=== PATIENT | male | born 1985 | race Caucasian/White ===

== ENCOUNTER 2016-10-27 20:26 | Emergency (ER) | payer OTHER ==
[2016-10-27 20:40] VITALS: BP 150/84; PULSE 103; TEMP 98.3; BMI 35.9
[2016-10-27] MEDS ORDERED: DIPHTH,PERTUSS(ACELL),TET 0.5 ML DISP.SYRIN IM ONE (21:53)
--- NOTE | 2016-10-27 21:57 | PDOC ---
History of Present Illness - General Chief Complaint: Laceration Stated Complaint: LACERATION Time Seen by Provider: 10/27/16 21:53 History Source: Patient Exam Limitations: No Limitations - History of Present Illness Initial Comments: 10/27/16 21:53 31 yr male with laceration to the left eyebrow at work today. Pt accidentaly hit with a shovel handle. no loc. Past History - Past Medical History Allergies/Adverse Reactions: Allergies Allergy/AdvReac Type Severity Reaction Status Date / Time No Known Drug Allergies Allergy Verified 10/27/16 20:37 codfish Allergy Unknown Itching Uncoded 10/27/16 20:37 shrimp Allergy Unknown Itching Uncoded 10/27/16 20:37 Home Medications: Ambulatory Orders Metformin HCl [Glucophage] 1,000 mg PO ASDIR 10/27/16 Oxycodone HCl/Acetaminophen [Oxycodone-Acetaminophen 10-325] 10 mg PO ASDIR 10/06 Ramipril 2.5 mg PO ASDIR 10/27/16 Sitagliptin Phos/Metformin HCl [Janumet Xr 50-500 mg Tablet] 50 mg PO ASDIR 10/06 Asthma: Yes Diabetes: Yes (NIDDM) HTN: Yes - Immunization History Td Vaccination: No (unknown) - Psycho/Social/Smoking Cessation Hx Anxiety: No Suicidal Ideation: No Smoking Status: Yes Smoking History: Current every day smoker Have you smoked in the past 12 months: Yes Number of Cigarettes Smoked Daily: 20 If you are a former smoker, when did you quit?: 2WEEKS AGO Information on smoking cessation initiated: No 'Breaking Loose' booklet given: 05/03/15 Hx Alcohol Use: No Drug/Substance Use Hx: No Substance Use Type: None Hx Substance Use Treatment: No *Physical Exam - Vital Signs Last Vital Signs Temp Pulse Resp BP Pulse Ox 98.3 F 103 H 18 150/84 99 10/27/16 20:37 10/27/16 20:37 10/27/16 20:37 10/27/16 20:37 10/27/16 20:37 - Physical Exam Comments: 10/27/16 21:55 General Appearance: Yes: Nourished, Appropriately Dressed HEENT: positive: EOMI, TAMI, Normal ENT Inspection, TMs Normal, Pharynx Normal Neck: positive: Supple. negative: Tender Respiratory/Chest: positive: Lungs Clear, Normal Breath Sounds Cardiovascular: positive: Regular Rhythm, Regular Rate Integumentary: positive: Normal Color, Dry, Warm, Other (1.5cm v shaped laceration threw the left eyebrow, no active bleeding ) Procedures - Laceration/Wound Repair Left Face Wound Length: to 2.5 cm Wound Explored: clean Wound's Depth, Shape: superficial, flap (v shaped ) Irrigated w/ Saline: Yes Betadine Prep: Yes Wound Repaired With: Dermabond (pt refused any suturing ) Medical Decision Making - Medical Decision Making 10/27/16 21:56 cc: eyebrow laceration pt refused suturing (does not want any needles) I have discussed that I can place dermabond to glue closed which pt prefers will update tetanus pt agrees to the tetanus vaccine dc inst wound care and cosmetic outcome discussed with pt who agrees with the glue closure. 10/27/16 22:36 *DC/Admit/Observation/Transfer Diagnosis at time of Disposition: Laceration - Discharge Dispostion Disposition: HOME Condition at time of disposition: Improved - Patient Instructions Printed Discharge Instructions: DI for Laceration Repair With Dermabond Additional Instructions: do not get wet for at least 12hrs then you can briefly get wet in the shower do not put any creams or lotions over the wound the glue will peel off on its own in about one week tetanus vaccine is good for 10 yrs
== END 2016-10-27 21:57 | disposition home or self-care (01) ==
LOC: JERFT 20:26
PROC: 0HQ1XZZ Repair Face Skin, External Approach (ICD-10-PCS; principal; 2016-10-27)
PROC: 3E0234Z Introduction of Serum, Toxoid and Vaccine into Muscle, Percutaneous Approach (ICD-10-PCS; 2016-10-27)
DX: S01.112A Laceration without foreign body of left eyelid and periocular area, initial encounter (principal); W22.8XXA Striking against or struck by other objects, initial encounter; Y93.9 Activity, unspecified; Y92.9 Unspecified place or not applicable; Y99.0 Civilian activity done for income or pay; I10 Essential (primary) hypertension; E11.9 Type 2 diabetes mellitus without complications; J45.909 Unspecified asthma, uncomplicated; F17.210 Nicotine dependence, cigarettes, uncomplicated; Z79.84 Long term (current) use of oral hypoglycemic drugs; Z91.013 Allergy to seafood
CPT/HCPCS: 12011-25; 90471; 90715; 99281-25

== ENCOUNTER 2016-11-13 03:27 | Emergency (ER) | payer OTHER ==
[2016-11-13 04:20] VITALS: BP 104/50; PULSE 87; TEMP 98; BMI 36.1
[2016-11-13] MEDS ORDERED: IBUPROFEN 400 MG TABLET (FP) PO ONE ×2 (05:00→05:05)
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
== END 2016-11-13 06:49 | disposition home or self-care (01) ==
LOC: JER 03:27
PROC: 2W3CX1Z Immobilization of Right Lower Arm using Splint (ICD-10-PCS; principal; 2016-11-13)
DX: S62.396A Other fracture of fifth metacarpal bone, right hand, initial encounter for closed fracture (principal); Y04.0XXA Assault by unarmed brawl or fight, initial encounter; Y92.89 Other specified places as the place of occurrence of the external cause; I10 Essential (primary) hypertension; E11.9 Type 2 diabetes mellitus without complications; Z79.4 Long term (current) use of insulin; F17.210 Nicotine dependence, cigarettes, uncomplicated
CPT/HCPCS: 72100-TC; 73030-TC-RT; 73130-TC-RT; 99282-25

== ENCOUNTER 2017-02-01 15:52 | Emergency (ER) | payer OTHER ==
[2017-02-01 16:01] VITALS: BP 153/81; PULSE 86; TEMP 97.9; BMI 29.5
[2017-02-01] MEDS ORDERED: KETOROLAC TROMETHAMINE 30 MG/1 ML VIAL IM ONE (17:37)
[2017-02-01] MEDS ORDERED: KETOROLAC TROMETHAMINE 30 MG/1 ML VIAL ONE (17:55)
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
== END 2017-02-01 19:12 | disposition home or self-care (01) ==
LOC: JERFT 15:52
PROC: 3E0233Z Introduction of Anti-inflammatory into Muscle, Percutaneous Approach (ICD-10-PCS; principal; 2017-02-01)
DX: S29.8XXA Other specified injuries of thorax, initial encounter (principal); V09.09XA Pedestrian injured in nontraffic accident involving other motor vehicles, initial encounter; Y92.488 Other paved roadways as the place of occurrence of the external cause; Y93.H9 Activity, other involving exterior property and land maintenance, building and construction; Y99.0 Civilian activity done for income or pay
CPT/HCPCS: 71111-TC; 73130-TC-LT; 99281-25

== ENCOUNTER 2017-02-23 20:46 | Emergency (ER) | payer OTHER ==
[2017-02-23 20:53] VITALS: BP 123/69; PULSE 81; TEMP 98; BMI 34.4
--- NOTE | 2017-02-23 20:53 | PDOC ---
Rapid Medical Evaluation Time Seen by Provider: 02/23/17 20:50 Medical Evaluation: Allergies Allergy/AdvReac Type Severity Reaction Status Date / Time No Known Drug Allergies Allergy Verified 02/01/17 15:57 codfish Allergy Unknown Itching Uncoded 02/01/17 15:57 shrimp Allergy Unknown Itching Uncoded 02/01/17 15:57 02/23/17 20:51 I have performed a brief in person evaluation of this patient. The patient presents with chief complaint of : asthma attack today taking albuterol . cough for 3 weeks HX DM, asthma, HTN Pertinent PE findings: no wheezing , vitals stable I have ordered the following: none The patient will proceed to the ER for further evaluation. Discharge Disposition - Referrals Referrals: Aniceto Avery [Primary Care Provider] - - Patient Instructions - Post Discharge Activity
[2017-02-23] MEDS ORDERED: predniSONE 20 MG TABLET (UD) PO ONE (22:27)
--- NOTE | 2017-02-23 22:27 | PDOC ---
History of Present Illness - General History Source: Patient Exam Limitations: No Limitations - History of Present Illness Initial Comments: 02/23/17 22:29 The patient is a 32 year old male with a significant PMH of asthma and diabetes who presents to the emergency department with pleuritic chest pain exacerbated by palpation and deep breathing for the past two and a half weeks. The patient states he has been feeling increasingly short of breath and tightness in his chest. The patient notes associated yellow, brown, and red colored phlegm, cough , and subjective fever secondary to his shortness of breath. The patient states he has been taking NyQuil and DayQuil with no relief of symptoms. The patient reports he has been using his asthma pump five times a day. The patient denies headache and dizziness. Denies chills, nausea, vomit, diarrhea and constipation. Allergies: NKA Past surgical history: None reported. Social history: No reported alcohol, drug, or cigarette use. PCP:Dr. Avery <Aide Roper - Last Filed: 02/23/17 22:29> <Jenna Ontiveros - Last Filed: 02/24/17 00:07> - General Chief Complaint: Asthma Stated Complaint: SOB/ASTHMA Time Seen by Provider: 02/23/17 20:50 Past History <Aide Roper - Last Filed: 02/23/17 22:29> - Past Medical History Asthma: Yes COPD: No Diabetes: Yes (NIDDM) HTN: Yes - Immunization History Td Vaccination: No (unknown) - Suicide/Smoking/Psychosocial Hx Smoking Status: Yes Smoking History: Current every day smoker Have you smoked in the past 12 months: Yes Number of Cigarettes Smoked Daily: 5 If you are a former smoker, when did you quit?: 2WEEKS AGO Information on smoking cessation initiated: No 'Breaking Loose' booklet given: 05/03/15 Hx Alcohol Use: No Drug/Substance Use Hx: No Substance Use Type: None Hx Substance Use Treatment: No <Jenna Ontiveros - Last Filed: 02/24/17 00:07> - Past Medical History Allergies/Adverse Reactions: Allergies Allergy/AdvReac Type Severity Reaction Status Date / Time No Known Drug Allergies Allergy Verified 02/23/17 20:51 codfish Allergy Unknown Itching Uncoded 02/23/17 20:51 shrimp Allergy Unknown Itching Uncoded 02/23/17 20:51 Home Medications: Ambulatory Orders Metformin HCl [Glucophage] 1,000 mg PO ASDIR 10/27/16 Ramipril 2.5 mg PO ASDIR 10/27/16 Sitagliptin Phosphate [Januvia -] 25 mg PO ONCE 02/23/17 Albuterol 0.083% Nebulizer Liat [Ventolin 0.083% Nebulizer Soln -] 1 neb NEB Q4H #20 vial 02/24/17 Albuterol Sulfate Inhaler - [Ventolin HFA Inhaler -] 1 - 2 inh PO Q4H #1 inhaler 02/24/17 Guaifenesin [Mucinex -] 600 mg PO BID #14 tablet.er 02/24/17 Prednisone [Deltasone -] 40 mg PO DAILY #8 tablet 02/24/17 Review of Systems - Review of Systems Able to Perform ROS?: Yes Comments:: 02/23/17 22:38 GENERAL/CONSTITUTIONAL: (+) Fever. No chills. No weakness. HEAD, EYES, EARS, NOSE AND THROAT: No change in vision. No ear pain or discharge. No sore throat. CARDIOVASCULAR: (+) Shortness of breath. (+) Chest pain. RESPIRATORY: (+) Cough (+) Wheezing. (+) Phlegm. No hemoptysis. GASTROINTESTINAL: No nausea, vomiting, diarrhea or constipation. GENITOURINARY: No dysuria, frequency, or change in urination. MUSCULOSKELETAL: No joint or muscle swelling or pain. No neck or back pain. SKIN: No rash NEUROLOGIC: No headache, vertigo, loss of consciousness, or change in strength/ sensation. ENDOCRINE: No increased thirst. No abnormal weight change. HEMATOLOGIC/LYMPHATIC: No anemia, easy bleeding, or history of blood clots. ALLERGIC/IMMUNOLOGIC: No hives or skin allergy. <Aide Roper - Last Filed: 02/23/17 22:29> *Physical Exam - Vital Signs Last Vital Signs Temp Pulse Resp BP Pulse Ox 98 F 81 18 123/69 97 02/23/17 20:51 02/23/17 20:51 02/23/17 20:51 02/23/17 20:51 02/23/17 20:51 - Physical Exam Comments: 02/23/17 22:42 GENERAL: Awake, alert, and fully oriented, in no acute distress HEAD: No signs of trauma EYES: PERRLA, EOMI, sclera anicteric, conjunctiva clear ENT: Auricles normal inspection, hearing grossly normal, nares patent, oropharynx clear without exudates. Moist mucosa NECK: Normal ROM, supple, no lymphadenopathy, JVD, or masses LUNGS: (+) Scattered expiratory wheezing. (+) Decreased breath sounds in the bases. No crackles. HEART: Regular rate and rhythm, normal S1 and S2, no murmurs, rubs or gallops ABDOMEN: Soft, nontender, normoactive bowel sounds. No guarding, no rebound. No masses EXTREMITIES: Normal range of motion, no edema. No clubbing or cyanosis. No cords, erythema, or tenderness NEUROLOGICAL: Cranial nerves II through XII grossly intact. Normal speech, normal gait SKIN: Warm, Dry, normal turgor, no rashes or lesions noted. <Aide Roper - Last Filed: 02/23/17 22:29> - Vital Signs Last Vital Signs Temp Pulse Resp BP Pulse Ox 98 F 81 18 123/69 97 02/23/17 20:51 02/23/17 20:51 02/23/17 20:51 02/23/17 20:51 02/23/17 20:51 <Jenna Ontiveros - Last Filed: 02/24/17 00:07> Medical Decision Making - Medical Decision Making 02/24/17 00:02 repeat lung exam with improved aeration to bases, no wheezing. CXR negative for pneumonia. D/c home <Jenna Ontiveros - Last Filed: 02/24/17 00:07> *DC/Admit/Observation/Transfer - Attestations Scribe Attestion: 02/23/17 22:43 Documentation prepared by Aide Roper, acting as medical care evaluation specialist for Jeffry Zimmerman MD. <Aide Roper - Last Filed: 02/23/17 22:29> - Discharge Dispostion Admit: No <Jenna Ontiveros - Last Filed: 02/24/17 00:07> Diagnosis at time of Disposition: Asthma Qualifiers: Asthma severity: mild Asthma persistence: intermittent Asthma complication type : with acute exacerbation Qualified Code(s): J45.21 - Mild intermittent asthma with (acute) exacerbation - Discharge Dispostion Disposition: HOME Condition at time of disposition: Improved - Referrals Referrals: Aniceto Avery [Primary Care Provider] - - Patient Instructions Printed Discharge Instructions: DI for Asthma -- Adult Additional Instructions: You had an asthma exacerbation today most likely due to an upper respiratory infection, common cold. Please take your nebulizer solution went home every 4 hours as needed for the wheezing and cough. If you're out he may use your albuterol pump in its place. Please take the prednisone and Mucinex as prescribed. Please follow-up with Dr. Avery this week. Return to the emergency department if you have worsening shortness of breath, chest pain, difficulty breathing, fevers, or any changes in her symptoms. - Post Discharge Activity Forms/Work/School Notes: Back to Work
[2017-02-23] MEDS: ALBUTEROL SO4 2.5/IPRATROPIUM 0.5 INH SOL 3 ML VIAL.NEB. NEB SCH ×4 (22:31→23:47)
[2017-02-23] MEDS ORDERED: ALBUTEROL SO4 2.5/IPRATROPIUM 0.5 INH SOL 3 ML VIAL.NEB. NEB ONE (22:50)
[2017-02-23] MEDS ORDERED: predniSONE 20 MG TABLET (UD) ONE (22:50)
== END 2017-02-24 00:10 | disposition home or self-care (01) ==
LOC: JERFT 20:46
PROC: 3E0F7GC Introduction of Other Therapeutic Substance into Respiratory Tract, Via Natural or Artificial Opening (ICD-10-PCS; principal; 2017-02-23)
DX: J45.21 Mild intermittent asthma with (acute) exacerbation (principal); F17.210 Nicotine dependence, cigarettes, uncomplicated
CPT/HCPCS: 71020-TC; 94640; 99281-25

== ENCOUNTER 2018-04-15 09:59 | Inpatient (IN) | payer OTHER ==
--- NOTE | 2018-04-15 11:26 | PDOC ---
History of Present Illness - General Chief Complaint: Ear Problem Stated Complaint: EAR PAIN Time Seen by Provider: 04/15/18 10:59 History Source: Patient Exam Limitations: No Limitations - History of Present Illness Initial Comments: 04/15/18 15:33 Pt is a 33 y/o M with PMH of NIDDM, who presents to the ED for L ear pain for two days. Pt states that he has had intermittent L ear pain for one month. He states that he noticed minimal drainage from the L ear. Pt also admits to body aches, and chills. Denies fever, hearing loss. Past History - Travel Traveled outside of the country in the last 30 days: No Close contact w/someone who was outside of country & ill: No - Past Medical History Allergies/Adverse Reactions: Allergies Allergy/AdvReac Type Severity Reaction Status Date / Time No Known Drug Allergies Allergy Verified 04/15/18 10:05 codfish Allergy Unknown Itching Uncoded 04/15/18 10:05 shrimp Allergy Unknown Itching Uncoded 04/15/18 10:05 Home Medications: Ambulatory Orders Albuterol 0.083% Nebulizer Liat [Ventolin 0.083% Nebulizer Soln -] 1 neb NEB Q4H #20 vial 02/24/17 Albuterol Sulfate Inhaler - [Ventolin HFA Inhaler -] 1 - 2 inh PO Q4H #1 inhaler 02/24/17 Asthma: Yes COPD: No Diabetes: Yes (NIDDM) HTN: Yes - Immunization History Td Vaccination: No (unknown) - Suicide/Smoking/Psychosocial Hx Smoking Status: Yes Smoking History: Unknown if ever smoked Have you smoked in the past 12 months: Yes Number of Cigarettes Smoked Daily: 5 If you are a former smoker, when did you quit?: 2WEEKS AGO 'Breaking Loose' booklet given: 05/03/15 Hx Alcohol Use: No Drug/Substance Use Hx: No Substance Use Type: None Hx Substance Use Treatment: No Review of Systems - Review of Systems Able to Perform ROS?: Yes Comments:: 04/15/18 15:28 CONSTITUTIONAL: Absent: fever, chills, diaphoresis, generalized weakness, malaise, loss of appetite HEENT: Present: ear pain Absent: rhinorrhea, nasal congestion, throat pain, throat swelling, difficulty swallowing, mouth swelling, eye pain, visual Changes CARDIOVASCULAR: Absent: chest pain, loss of consciousness, palpitations, irregular heart rate, peripheral edema RESPIRATORY: Absent: cough, shortness of breath, dyspnea with exertion, orthopnea, wheezing, stridor, hemoptysis GASTROINTESTINAL: Absent: abdominal pain, abdominal distension, nausea, vomiting, diarrhea, constipation, melena, hematochezia GENITOURINARY: Absent: dysuria, frequency, urgency, hesitancy, hematuria, flank pain, genital pain MUSCULOSKELETAL: Absent: myalgia, arthralgia, joint swelling SKIN: Absent: rash, itching, pallor HEMATOLOGIC/IMMUNOLOGIC: Absent: easy bleeding, easy bruising, lymphadenopathy, frequent infections ENDOCRINE: Absent: unexplained weight gain, unexplained weight loss, heat intolerance, cold intolerance NEUROLOGIC: Present: headaches Absent: focal weakness or paresthesias, dizziness, unsteady gait, seizure, mental status changes, bladder or bowel incontinence PSYCHIATRIC: Absent: anxiety, depression, suicidal or homicidal ideation, hallucinations. Is the patient limited Romansh proficient: No *Physical Exam - Vital Signs Last Vital Signs Temp Pulse Resp BP Pulse Ox 98.3 F 82 16 133/87 99 04/15/18 10:06 04/15/18 10:06 04/15/18 10:06 04/15/18 10:06 04/15/18 10:06 - Physical Exam Comments: 04/15/18 15:30 GENERAL: Well developed, well nourished. Awake and alert. No acute distress. HEENT: Normocephalic, atraumatic. PERRLA, EOMI. No conjunctival pallor. Sclera are non- icteric. Moist mucous membranes. Oropharynx is clear. L ear canal is erythematous and swollen. Minimal drainage. R TM is normal. TTP behind the L ear around the area of the mastoid air cells. NECK: Supple. Full ROM. No JVD. Carotid pulses 2+ and symmetric, without bruits. No thyromegaly. No lymphadenopathy. CARDIOVASCULAR: Regular rate and rhythm. No murmurs, rubs, or gallops. Distal pulses are 2+ and symmetric. PULMONARY: No evidence of respiratory distress. Lungs clear to auscultation bilaterally. No wheezing, rales or rhonchi. ABDOMINAL: Soft. Non-tender. Non-distended. No rebound or guarding. No organomegaly. Normoactive bowel sounds. MUSCULOSKELETAL Normal range of motion at all joints. No bony deformities or tenderness. No CVA tenderness. EXTREMITIES: No cyanosis. No clubbing. No edema. No calf tenderness. SKIN: Warm and dry. Normal capillary refill. No rashes. No jaundice. NEUROLOGICAL: Alert, awake, appropriate. Cranial nerves 2-12 intact. No deficits to light touch and temperature in face, upper extremities and lower extremities. No motor deficits in the in face, upper extremities and lower extremities. Normoreflexic in the upper and lower extremities. Normal speech. Toes are down- going bilaterally. Gait is normal without ataxia. PSYCHIATRIC: Cooperative. Good eye contact. Appropriate mood and affect. Moderate Sedation - Procedure Monitoring Vital Signs: Procedure Monitoring Vital Signs Temperature 98.3 F 04/15/18 10:06 Pulse Rate 82 04/15/18 10:06 Respiratory Rate 16 04/15/18 10:06 Blood Pressure 133/87 04/15/18 10:06 O2 Sat by Pulse Oximetry (%) 99 04/15/18 10:06 ED Treatment Course - LABORATORY CBC & Chemistry Diagram: 04/15/18 11:32 04/15/18 11:32 Medical Decision Making - Medical Decision Making 04/15/17 15:21 Pt presents with 2 days of severe L ear pain Exam with erythema to the L ear canal without gross otorrhea TTP to the mastoid area Motrin ordered CT Temporal bones ordered. Re-evaluation 04/15/18 17:00 Acute Mastoiditis seen on Temporal CT Tramadol given for pain Pt is high risk given his diabetes and will require admission to the hospital Vancomycin and rocephin ordered 6 units of insulin ordered for sugar of [address] Aniceto Avery; Dr. Hunter's service paged. 04/15/18 17:[address] Sterling who agrees with admission Changed Rocephin to Zosyn Blood cultures ordered. *DC/Admit/Observation/Transfer Diagnosis at time of Disposition: Mastoiditis Qualifiers: Laterality: left Qualified Code(s): H70.92 - Unspecified mastoiditis, left ear - Discharge Dispostion Condition at time of disposition: Stable Decision to Admit order: Yes - Referrals - Patient Instructions - Post Discharge Activity
[2018-04-15 11:55] LABS: BASO % 0.7 % (0-2.0); HEMATOCRIT 49.3 % (35.4-49); HEMOGLOBIN 17.3 GM/dL (11.7-16.9); LYMPH % 25.9 % (8-40); MCH 31.7 pg (25.7-33.7); MCHC 35.1 g/dl (32.0-35.9); MEAN CELL VOLUME 90.3 fl (80-96); MEAN PLT VOLUME 8.1 fl (7.5-11.1); MONO % 8.7 % (3.8-10.2); NEUT % 62.7 % (42.8-82.8); PLATELET COUNT 285 K/MM3 (134-434); RBC 5.46 M/mm3 (4.00-5.60); RDW 13.1 % (11.9-15.9); WHITE BLOOD COUNT 12.1 K/mm3 (4.0-10.0)
[2018-04-15] MEDS ORDERED: IBUPROFEN 400 MG TABLET (FP) PO ONE ×2 (12:42→12:45)
[2018-04-15 12:51] LABS: ALBUMIN 4.1 g/dl (3.4-5.0); ALK PHOS 78 U/L (45-117); ANION GAP 8 MMOL/L (8-16); BILIRUBIN,TOTAL 0.4 mg/dL (0.2-1); BLOOD UREA NITROGEN 14 mg/dL (7-18); CALCIUM 9.3 mg/dL (8.5-10.1); CHLORIDE 99 mmol/L (98-107); CO2 28 mmol/L (21-32); CREATININE 0.9 mg/dL (0.55-1.3); POTASSIUM 3.9 mmol/L (3.5-5.1); SGOT/AST 13 U/L (15-37); SGPT/ALT 39 U/L (13-61); SODIUM 135 mmol/L (136-145); TOT PROT 7.9 g/dl (6.4-8.2)
[2018-04-15 12:59] LABS: GLUCOSE,RANDOM 320 mg/dL (74-106)
[2018-04-15] MEDS ORDERED: traMADol HCL 50 MG TABLET PO ONE (15:53)
[2018-04-15] MEDS ORDERED: traMADol HCL 50 MG TABLET ONE (15:57)
[2018-04-15] MEDS ORDERED: INSULIN (NOVOLOG) ASPART 100 UNITS/ML 10ML VIAL SQ ONE ×2 (16:58→23:19)
[2018-04-15] MEDS ORDERED: VANCOMYCIN 1,000 MG in DEXTROSE 5%-WATER - 250 ML IVPB ONE (16:58)
[2018-04-15] MEDS ORDERED: CEFTRIAXONE 1,000 MG in DEXTROSE 5%-WATER - 50 ML IVPB ONE (16:59)
[2018-04-15] MEDS ORDERED: PIPERACILLIN/TAZOB 3.375 GM 3.375 GM in DEXTROSE 5%-WATER - 50 ML IVPB ONE (17:31)
[2018-04-15] MEDS ORDERED: PIPERACILLIN/TAZOB 3.375 GM 3.375 GM/50 ML BAG IVPB ONE (18:34)
[2018-04-15] MEDS ORDERED: VANCOMYCIN 1 GRAM (PRE-DOCKED) 1,000 MG/250 ML BAG IVPB ONE (18:34)
[2018-04-15] MEDS ORDERED: INSULIN REGULAR HUMAN 100 UNITS/ML *VIAL ONE (18:35)
--- NOTE | 2018-04-15 20:28 | HP ---
Admitting History and Physical - Primary Care Physician PCP: Aniceto Avery - Admission Chief Complaint: L- Ear Pain, Swelling History of Present Illness: Pt is a 33 y/o M with PMH of NIDDM(no meds), HTN (no meds), Asthma. Who presents to the ED for L ear pain for two days. Pt states that he has had intermittent L ear pain for one month. He states that he noticed minimal drainage from the L ear. Pt also admits to body aches, and chills. Denies fever , hearing loss. Patient denies SOB, dysphagia, CP, palpitations, AP, N/V/D, constipation, dysuria History Source: Patient Limitations to Obtaining History: No Limitations - Past Medical History Cardiovascular: Yes: HTN Pulmonary: Yes: Asthma Endocrine: Yes: Diabetes Mellitus - Past Surgical History Past Surgical History: Yes: None - Smoking History Smoking history: Unknown if ever smoked Have you smoked in the past 12 months: Yes Aproximately how many cigarettes per day: 5 If you are a former smoker, when did you quit?: 2WEEKS AGO - Alcohol/Substance Use Hx Alcohol Use: No History of Substance Use: reports: None - Social History Usual Living Arrangement: Yes: With Parent ADL: Independent Occupation: employed- [employer] History of Recent Travel: No Home Medications - Allergies Allergies/Adverse Reactions: Allergies Allergy/AdvReac Type Severity Reaction Status Date / Time No Known Drug Allergies Allergy Verified 04/15/18 10:05 codfish Allergy Unknown Itching Uncoded 04/15/18 10:05 shrimp Allergy Unknown Itching Uncoded 04/15/18 10:05 - Home Medications Home Medications: Ambulatory Orders Albuterol 0.083% Nebulizer Liat [Ventolin 0.083% Nebulizer Soln -] 1 neb NEB Q4H #20 vial 02/24/17 Albuterol Sulfate Inhaler - [Ventolin HFA Inhaler -] 1 - 2 inh PO Q4H #1 inhaler 02/24/17 Family Disease History - Family Disease History Family Disease History: Diabetes: Grandparent Review of Systems - Review of Systems Constitutional: reports: No Symptoms Eyes: reports: No Symptoms HENT: reports: Ear Discharge, Ear Pain Neck: reports: Swollen Glands Cardiovascular: reports: No Symptoms Respiratory: reports: No Symptoms Gastrointestinal: reports: No Symptoms Genitourinary: reports: No Symptoms Breasts: reports: No Symptoms Reported Musculoskeletal: reports: No Symptoms Integumentary: reports: No Symptoms Neurological: reports: No Symptoms Endocrine: reports: No Symptoms Hematology/Lymphatic: reports: No Symptoms Psychiatric: reports: No Symptoms Physical Examination Vital Signs: Vital Signs Temperature 98.3 F 04/15/18 10:06 Pulse Rate 82 04/15/18 10:06 Respiratory Rate 16 04/15/18 10:06 Blood Pressure 133/87 04/15/18 10:06 O2 Sat by Pulse Oximetry (%) 99 04/15/18 10:06 Constitutional: Yes: Well Nourished, Mild Distress, Obese Eyes: Yes: WNL, Conjunctiva Clear, EOM Intact, PERRL HENT: Yes: Atraumatic, Normocephalic, Other (+edema to L-ear TTP L-ear) Neck: Yes: WNL Cardiovascular: Yes: WNL, Regular Rate and Rhythm, S1, S2 Respiratory: Yes: WNL, Regular, CTA Bilaterally Gastrointestinal: Yes: WNL, Normal Bowel Sounds, Soft, Abdomen, Obese Renal/: Yes: WNL Breast(s): Yes: WNL Musculoskeletal: Yes: WNL Extremities: Yes: WNL Edema: No Peripheral Pulses WNL: Yes Integumentary: Yes: Tattoos Neurological: Yes: WNL, Alert, Oriented, Cran Nerves II-XII Intact ...Motor Strength: WNL Psychiatric: Yes: WNL, Alert, Oriented Labs: CBC, BMP 04/15/18 11:32 04/15/18 11:32 Current Medications Generic Name Dose Route Start Last Admin Trade Name Arielq PRN Reason Stop Dose Admin Piperacillin Sod/Tazobactam 50 mls @ 100 mls/hr 04/16/18 03:00 Sod 3.375 gm/ Dextrose IVPB Q8H-IV NITIN Protocol Piperacillin Sod/Tazobactam 50 mls @ 100 mls/hr 04/16/18 02:00 04/16/18 02:50 Sod 3.375 gm/ Dextrose IVPB 04/16/18 18:29 100 mls/hr Q8H-IV NITIN Administration Protocol Insulin Aspart 1 vial 04/16/18 07:00 04/16/18 06:33 Novolog Vial Sliding Scale - SQ 4 units ACHS NITIN Administration Protocol Ketorolac Tromethamine 30 mg 04/15/18 21:00 04/16/18 02:50 Toradol Injection - IVPUSH 04/20/18 20:59 Not Given Q8H-IV NITIN Tramadol HCl 50 mg 04/16/18 00:01 Ultram - PO Q8H PRN PAIN LEVEL 7 - 10 Imaging - Results Cat Scan: Image Reviewed Problem List - Problems (1) Mastoiditis Assessment/Plan: Temporal CT- Mastoiditis Given Vancomycin, Rocephin in ED Will start on Zosyn for Pseudomonal coverage Appreciate ENT consult Toradol prn Tramadol Monitor CBC, BMP Monitor vitals Code(s): H70.90 - UNSPECIFIED MASTOIDITIS, UNSPECIFIED EAR Qualifiers: Laterality: left Qualified Code(s): H70.92 - Unspecified mastoiditis, left ear (2) Diabetes Assessment/Plan: Uncontrolled Likely secondary to non-compliance Counseled pt on risks and dangers of uncontrolled DM, patient verbalized understanding BGMs ISS Appreciate RD consult f/u with Endocrinology outpatient HgbA1c in 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 Code(s): E11.9 - TYPE 2 DIABETES MELLITUS WITHOUT COMPLICATIONS Qualifiers: Diabetes mellitus type: type 2 Diabetes mellitus complication status: without complication Qualified Code(s): E11.9 - Type 2 diabetes mellitus without complications (3) HTN (hypertension) Assessment/Plan: Stable Monitor BP Low Na Diet Code(s): I10 - ESSENTIAL (PRIMARY) HYPERTENSION (4) Asthma Assessment/Plan: stable no acute flare Albuterol nebs Consider adding LABA to regimen Peak flow BID f/u with Pulmonology in ED Code(s): J45.909 - UNSPECIFIED ASTHMA, UNCOMPLICATED Qualifiers: Asthma severity: mild Asthma persistence: intermittent Asthma complication type: with acute exacerbation Qualified Code(s): J45.21 - Mild intermittent asthma with (acute) exacerbation Assessment/Plan This is a 33 y/o young man with a PMHx of NIDDM, HTN, Asthma. Admitted for Mastoiditis, Uncontrolled DM for further evaluation of their emergent condition. Plan See Problem List FEN PO fluids as tolerated Replete lytes prn Diabetic, Low Na Diet DVT ppx OOB SCDs Dispo: Requires Inpatient Care Visit type - Emergency Visit Emergency Visit: Yes ED Registration Date: 04/15/18 Care time: The patient presented to the Emergency Department on the above date and was hospitalized for further evaluation of their emergent condition. - New Patient This patient is new to me today: Yes Date on this admission: 04/15/18 - Critical Care Critical Care patient: No
[2018-04-15 21:32] VITALS: BMI 35.4
[2018-04-15] MEDS ORDERED: INSULIN REGULAR HUMAN 100 UNITS/ML *VIAL SQ ONE (23:19)
[2018-04-15] MEDS: KETOROLAC TROMETHAMINE 30 MG/1 ML VIAL IVPUSH SCH (23:28)
[2018-04-16] MEDS ORDERED: traMADol HCL 50 MG TABLET PO PRN (00:01)
[2018-04-16] MEDS ORDERED: PIPERACILLIN/TAZOBACTAM 3.375 GM VIAL IVPB ONE ×3 (00:08→16:56)
[2018-04-16] MEDS ORDERED: DEXTROSE 5%-WATER - 50 ML IVPB ONE ×3 (00:08→16:56)
[2018-04-16] MEDS: PIPERACILLIN/TAZOB 3.375 GM 3.375 GM in DEXTROSE 5%-WATER - 50 ML IVPB SCH ×4 (02:50→18:28)
[2018-04-16] MEDS: KETOROLAC TROMETHAMINE 30 MG/1 ML VIAL IVPUSH SCH ×3 (02:50→17:03)
[2018-04-16] MEDS: INSULIN SLIDING SCALE (NOVOLOG) 1 VIAL SQ SCH ×4 (06:33→21:31)
[2018-04-16 07:26] LABS: BASO % 0.6 % (0-2.0); EOS % 2.5 % (0-4.5); HEMATOCRIT 44.1 % (35.4-49); HEMOGLOBIN 15.6 GM/dL (11.7-16.9); LYMPH % 28.5 % (8-40); MCH 31.3 pg (25.7-33.7); MCHC 35.3 g/dl (32.0-35.9); MEAN CELL VOLUME 88.5 fl (80-96); MEAN PLT VOLUME 8.2 fl (7.5-11.1); MONO % 8.7 % (3.8-10.2); NEUT % 59.7 % (42.8-82.8); PLATELET COUNT 250 K/MM3 (134-434); RBC 4.98 M/mm3 (4.00-5.60); WHITE BLOOD COUNT 10.2 K/mm3 (4.0-10.0)
[2018-04-16 07:57] LABS: ANION GAP 7 MMOL/L (8-16); BLOOD UREA NITROGEN 20 mg/dL (7-18); CALCIUM 8.6 mg/dL (8.5-10.1); CHLORIDE 103 mmol/L (98-107); CO2 27 mmol/L (21-32); CREATININE 0.9 mg/dL (0.55-1.3); GLUCOSE,RANDOM 244 mg/dL (74-106); POTASSIUM 4.1 mmol/L (3.5-5.1); SODIUM 138 mmol/L (136-145)
--- NOTE | 2018-04-16 12:58 | CON.ENT ---
Consult Consult Specialty:: ent Reason for Consultation:: 2 days of left ear pain - History of Present Illness Chief Complaint: 2 days of left ear pain, hearing reduction. Elevated FSG. - History Source History Provided By: Patient, Medical Record Limitations to Obtaining History: No Limitations - Past Medical History Cardio/Vascular: Yes: HTN Pulmonary: Yes: Asthma Endocrine: Yes: Diabetes Mellitus - Past Surgical History Past Surgical History: Yes: None - Alcohol/Substance Use Hx Alcohol Use: No History of Substance Use: reports: None - Smoking History Smoking history: Unknown if ever smoked Have you smoked in the past 12 months: Yes Aproximately how many cigarettes per day: 5 If you are a former smoker, when did you quit?: 2WEEKS AGO - Social History ADL: Independent Occupation: employed- [employer] History of Recent Travel: No Home Medications - Allergies Allergies/Adverse Reactions: Allergies Allergy/AdvReac Type Severity Reaction Status Date / Time No Known Drug Allergies Allergy Verified 04/15/18 10:05 codfish Allergy Unknown Itching Uncoded 04/15/18 10:05 shrimp Allergy Unknown Itching Uncoded 04/15/18 10:05 - Home Medications Home Medications: Ambulatory Orders Albuterol 0.083% Nebulizer Liat [Ventolin 0.083% Nebulizer Soln -] 1 neb NEB Q4H #20 vial 02/24/17 Albuterol Sulfate Inhaler - [Ventolin HFA Inhaler -] 1 - 2 inh PO Q4H #1 inhaler 02/24/17 Family Disease History - Family Disease History Family Disease History: Diabetes: Grandparent Physical Exam-ENT Vital Signs: Vital Signs Temperature 97.9 F 04/16/18 08:00 Pulse Rate 55 L 04/16/18 08:00 Respiratory Rate 20 04/16/18 08:00 Blood Pressure 132/68 04/16/18 08:00 O2 Sat by Pulse Oximetry (%) 99 04/16/18 09:00 Constitutional: Yes: Well Nourished, No Distress Head: Yes: WNL, Atraumatic Face: Yes: WNL, Symmetrical Eyes: Yes: WNL, Conjunctiva Clear Nose: Yes: WNL Nasal Passage: Yes: WNL Oral/Pharynx: Yes: WNL Outer Ear: Yes: Other (minimal left postauricular tenderness, with deep pressure. no swelling or erythema) Ear Canal: Yes: Inflamed (left inflamed, right wnl) Tympanic Membrane: Yes: Other (right normal, left middle ear fluid, erythema) Neck: Yes: WNL Imaging - Results Cat Scan: Report Reviewed, Image Reviewed (some mastoid air cell opacification, no abscess or collection, middle ear swelling) Problem List - Problems (1) Left middle ear infection Assessment/Plan: Clinically not mastoiditis. Clinically Acute otitis media, and mild otitis externa. Continue IV abx 1-2 days and switch to po. Also neomycin ear drops and f/u with me in 1-2 weeks. Code(s): H66.92 - OTITIS MEDIA, UNSPECIFIED, LEFT EAR Qualifiers: Otitis media type: suppurative Chronicity: acute Spontaneous tympanic membrane rupture: without spontaneous rupture
--- NOTE | 2018-04-16 18:01 | PN ---
Progress Note, Physician Chief Complaint: L ear pain Diabetes Mellitus History of Present Illness: previous notes and events reviewed awake and alert NAD sts pain to L ear is getting better - Current Medication List Current Medications: Active Medications Piperacillin Sod/Tazobactam (Sod 3.375 gm/ Dextrose) 50 mls @ 100 mls/hr IVPB Q8H-IV NITIN; Protocol Piperacillin Sod/Tazobactam (Sod 3.375 gm/ Dextrose) 50 mls @ 100 mls/hr IVPB Q8H-IV NITIN; Protocol Stop: 04/16/18 18:29 Last Admin: 04/16/18 17:03 Dose: 100 mls/hr Insulin Aspart (Novolog Vial Sliding Scale -) 1 vial SQ ACHS NITIN; Protocol Last Admin: 04/16/18 16:37 Dose: 8 units Ketorolac Tromethamine (Toradol Injection -) 30 mg IVPUSH Q8H-IV NITIN Stop: 04/20/18 20:59 Last Admin: 04/16/18 17:03 Dose: 30 mg Neomycin/Polymyxin/Hydrocortisone (Cortisporin Otic Suspenstion -) 4 drop TID NITIN Tramadol HCl (Ultram -) 50 mg PO Q8H PRN PRN Reason: PAIN LEVEL 7 - 10 - Objective Vital Signs: Vital Signs Temperature 98.1 F 04/16/18 15:32 Pulse Rate 60 04/16/18 15:32 Respiratory Rate 18 04/16/18 15:32 Blood Pressure 148/70 04/16/18 15:32 O2 Sat by Pulse Oximetry (%) 99 04/16/18 09:00 Constitutional: Yes: No Distress, Calm HENT: Yes: Other (L ear tender on palpation) Neck: Yes: Supple Cardiovascular: Yes: Regular Rate and Rhythm Respiratory: Yes: Regular, CTA Bilaterally Gastrointestinal: Yes: Normal Bowel Sounds, Soft Musculoskeletal: Yes: WNL Extremities: Yes: WNL Edema: No Integumentary: Yes: WNL Neurological: Yes: Alert, Oriented Psychiatric: Yes: Alert, Oriented Labs: CBC, BMP 04/16/18 06:25 04/16/18 06:25 Problem List - Problems (1) Left middle ear infection Assessment/Plan: -ENT consult appreciated -cont IV ABT -neomyacin ear drops -follow up with ENT as outpatient -contact precaution, MRSA screen pending Code(s): H66.92 - OTITIS MEDIA, UNSPECIFIED, LEFT EAR Qualifiers: Otitis media type: suppurative Chronicity: acute Spontaneous tympanic membrane rupture: without spontaneous rupture (2) Diabetes Assessment/Plan: -BGM ACHS, ISS -HgA1c ordered Code(s): E11.9 - TYPE 2 DIABETES MELLITUS WITHOUT COMPLICATIONS Qualifiers: Diabetes mellitus type: type 2 Diabetes mellitus complication status: without complication Qualified Code(s): E11.9 - Type 2 diabetes mellitus without complications (3) HTN (hypertension) Assessment/Plan: -no home meds -low Na diet Code(s): I10 - ESSENTIAL (PRIMARY) HYPERTENSION Assessment/Plan dvt ppx
[2018-04-16] MEDS ORDERED: INSULIN (NOVOLOG) ASPART 100 UNITS/ML 10ML VIAL ONE (20:58)
[2018-04-16] MEDS ORDERED: PT OWN MED DRAWER 7, Y5N ONE (21:06)
[2018-04-16] MEDS: NEOMYCIN/POLYMYXN/HC OTIC SUSPENSION 10 ML BOTTLE AS SCH (21:31)
[2018-04-17] MEDS ORDERED: PIPERACILLIN/TAZOBACTAM 3.375 GM VIAL IVPB ONE ×3 (02:45→17:14)
[2018-04-17] MEDS ORDERED: DEXTROSE 5%-WATER - 50 ML IVPB ONE ×3 (02:45→17:14)
[2018-04-17] MEDS: PIPERACILLIN/TAZOB 3.375 GM 3.375 GM in DEXTROSE 5%-WATER - 50 ML IVPB SCH ×3 (02:48→17:38)
[2018-04-17] MEDS: KETOROLAC TROMETHAMINE 30 MG/1 ML VIAL IVPUSH SCH ×3 (02:49→17:39)
[2018-04-17] MEDS: INSULIN SLIDING SCALE (NOVOLOG) 1 VIAL SQ SCH ×4 (06:16→22:06)
[2018-04-17] MEDS: NEOMYCIN/POLYMYXN/HC OTIC SUSPENSION 10 ML BOTTLE AS SCH ×3 (06:17→21:59)
[2018-04-17] MEDS ORDERED: PT OWN MED DRAWER 7, Y5N ONE (07:08)
[2018-04-17 07:16] LABS: HEMATOCRIT 42.5 % (35.4-49); HEMOGLOBIN 15.1 GM/dL (11.7-16.9); MCH 31.4 pg (25.7-33.7); MCHC 35.5 g/dl (32.0-35.9); MEAN CELL VOLUME 88.6 fl (80-96); MEAN PLT VOLUME 8.1 fl (7.5-11.1); PLATELET COUNT 238 K/MM3 (134-434); RDW 12.8 % (11.9-15.9); WHITE BLOOD COUNT 9.3 K/mm3 (4.0-10.0)
[2018-04-17 08:10] LABS: ALBUMIN 3.1 g/dl (3.4-5.0); ALK PHOS 65 U/L (45-117); ANION GAP 8 MMOL/L (8-16); BILIRUBIN,TOTAL 0.5 mg/dL (0.2-1); BLOOD UREA NITROGEN 24 mg/dL (7-18); CALCIUM 8.1 mg/dL (8.5-10.1); CHLORIDE 102 mmol/L (98-107); CO2 26 mmol/L (21-32); CREATININE 0.9 mg/dL (0.55-1.3); GLUCOSE,RANDOM 294 mg/dL (74-106); POTASSIUM 4.1 mmol/L (3.5-5.1); SGOT/AST 7 U/L (15-37); SGPT/ALT 29 U/L (13-61); SODIUM 135 mmol/L (136-145); TOT PROT 6.2 g/dl (6.4-8.2)
[2018-04-17] MEDS ORDERED: ALBUTEROL SO4 8 GM HFA INHALER IH PRN (09:00)
--- NOTE | 2018-04-17 09:26 | PN ---
Progress Note, Physician Chief Complaint: L ear pain Diabetes Mellitus History of Present Illness: previous notes and events reviewed awake and alert NAD L ear pain improving as per pt - Current Medication List Current Medications: Active Medications Albuterol Sulfate (Ventolin Hfa Inhaler -) 2 puff IH Q4H PRN PRN Reason: SHORT OF BREATH/WHEEZING Piperacillin Sod/Tazobactam (Sod 3.375 gm/ Dextrose) 50 mls @ 100 mls/hr IVPB Q8H-IV NITIN; Protocol Last Admin: 04/17/18 02:48 Dose: 100 mls/hr Insulin Aspart (Novolog Vial Sliding Scale -) 1 vial SQ ACHS NITIN; Protocol Last Admin: 04/17/18 06:16 Dose: 6 units Ketorolac Tromethamine (Toradol Injection -) 30 mg IVPUSH Q8H-IV NITIN Stop: 04/20/18 20:59 Last Admin: 04/17/18 02:49 Dose: 30 mg Neomycin/Polymyxin/Hydrocortisone (Cortisporin Otic Suspenstion -) 4 drop TID NITIN Last Admin: 04/17/18 06:17 Dose: 4 drop Tramadol HCl (Ultram -) 50 mg PO Q8H PRN PRN Reason: PAIN LEVEL 7 - 10 - Objective Vital Signs: Vital Signs Temperature 97.5 F L 04/17/18 06:03 Pulse Rate 53 L 04/17/18 06:03 Respiratory Rate 18 04/17/18 06:03 Blood Pressure 129/72 04/17/18 06:03 O2 Sat by Pulse Oximetry (%) 99 04/16/18 21:00 Constitutional: Yes: No Distress, Calm Eyes: Yes: Conjunctiva Clear HENT: Yes: Other (L ear tender to palpation) Cardiovascular: Yes: Regular Rate and Rhythm Respiratory: Yes: Regular, CTA Bilaterally Gastrointestinal: Yes: Normal Bowel Sounds, Soft Musculoskeletal: Yes: WNL Extremities: Yes: WNL Edema: No Neurological: Yes: Alert, Oriented Psychiatric: Yes: Alert, Oriented Labs: CBC, BMP 04/17/18 06:00 04/17/18 06:00 Microbiology 04/15/18 18:45 Blood Culture - Preliminary Blood - Peripheral Venous NO GROWTH OBTAINED AFTER 24 HOURS, INCUBATION TO CONTINUE FOR 4 DAYS. 04/15/18 18:45 Blood Culture - Preliminary Blood - Peripheral Venous NO GROWTH OBTAINED AFTER 24 HOURS, INCUBATION TO CONTINUE FOR 4 DAYS. Problem List - Problems (1) Left middle ear infection Assessment/Plan: -ENT consult appreciated -cont IV ABT -neomyacin ear drops -follow up with ENT as outpatient -contact precaution, MRSA screen pending Code(s): H66.92 - OTITIS MEDIA, UNSPECIFIED, LEFT EAR Qualifiers: Otitis media type: suppurative Chronicity: acute Spontaneous tympanic membrane rupture: without spontaneous rupture (2) Diabetes Assessment/Plan: -BGM ACHS, ISS -HgA1c 9.4 -endocrinology consult placed Code(s): E11.9 - TYPE 2 DIABETES MELLITUS WITHOUT COMPLICATIONS Qualifiers: Diabetes mellitus type: type 2 Diabetes mellitus complication status: without complication Qualified Code(s): E11.9 - Type 2 diabetes mellitus without complications (3) HTN (hypertension) Assessment/Plan: -no home meds -low Na diet -monitor BP Code(s): I10 - ESSENTIAL (PRIMARY) HYPERTENSION Assessment/Plan dvt ppx
--- NOTE | 2018-04-17 16:06 | PN ---
Progress Note (short form) - Note Progress Note: ID CONSULT DICTATED OK TO SWITCH TO CIPRO 500MG PO BID X 7D CONTINUE OTIC DROPS OUTPATIENT ENT F/U
--- NOTE | 2018-04-17 18:48 | CONS ---
DATE OF CONSULTATION: DATE OF DICTATION: 04/17/2018 HISTORY OF PRESENT ILLNESS: The patient is a 33-year-old male diabetic who is being evaluated for left otitis media. He presented with a 2-day history of worsening left ear pain associated some discharge. He presented to the hospital where he was admitted for otitis media. A CAT scan was performed and was consistent with left otomastoiditis. He was seen in consultation by ENT. At the present time, he reports clinical improvement on IV antibiotics and otic drops. He denies any fever or chills. He has had less pain and better hearing in his left ear. PAST MEDICAL HISTORY: Positive for diabetes. LABORATORY DATA: White count 9.3, creatinine 0.9. Blood cultures are negative. PHYSICAL EXAMINATION: General: The patient is not acutely toxic appearing. Vital Signs: Temperature 98.0, pulse 58 and regular, blood pressure 130/73, respiratory rate 18 per minute. HEENT:: Sclerae anicteric. There is no appreciable erythema noted. In the left pinna or external ear canal, no drainage is noted. Neck: Supple. No palpable nodes. IMPRESSION: Left otitis media; mastoiditis felt unlikely by ENT. PLAN: Okay to switch to oral antibiotic therapy with ciprofloxacin 500 mg p.o. b.i.d. for an additional 7 days. Continue otic drops. Outpatient ENT followup. PASQUALE VARGAS M.D. [id number]
[2018-04-18] MEDS ORDERED: INSULIN (NOVOLOG) ASPART 100 UNITS/ML 10ML VIAL SQ ONE (00:17)
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
[2018-04-18] MEDS ORDERED: DEXTROSE 5%-WATER - 50 ML IVPB ONE ×2 (02:53→09:14)
[2018-04-18] MEDS ORDERED: PIPERACILLIN/TAZOBACTAM 3.375 GM VIAL IVPB ONE ×2 (02:53→09:13)
[2018-04-18] MEDS: KETOROLAC TROMETHAMINE 30 MG/1 ML VIAL IVPUSH SCH ×3 (02:59→17:13)
[2018-04-18] MEDS: PIPERACILLIN/TAZOB 3.375 GM 3.375 GM in DEXTROSE 5%-WATER - 50 ML IVPB SCH (02:59)
[2018-04-18] MEDS: NEOMYCIN/POLYMYXN/HC OTIC SUSPENSION 10 ML BOTTLE AS SCH ×2 (06:17→14:51)
[2018-04-18] MEDS: INSULIN SLIDING SCALE (NOVOLOG) 1 VIAL SQ SCH ×3 (06:18→16:41)
[2018-04-18 07:53] LABS: ALK PHOS 61 U/L (45-117); ANION GAP 6 MMOL/L (8-16); BILIRUBIN,TOTAL 0.4 mg/dL (0.2-1); BLOOD UREA NITROGEN 20 mg/dL (7-18); CHLORIDE 102 mmol/L (98-107); CO2 29 mmol/L (21-32); CREATININE 0.8 mg/dL (0.55-1.3); GLUCOSE,RANDOM 208 mg/dL (74-106); POTASSIUM 3.9 mmol/L (3.5-5.1); SGOT/AST 8 U/L (15-37); SGPT/ALT 29 U/L (13-61); SODIUM 137 mmol/L (136-145); TOT PROT 6.2 g/dl (6.4-8.2)
[2018-04-18 08:18] LABS: HEMATOCRIT 41.9 % (35.4-49); HEMOGLOBIN 14.8 GM/dL (11.7-16.9); MCH 31.5 pg (25.7-33.7); MCHC 35.4 g/dl (32.0-35.9); MEAN CELL VOLUME 89.1 fl (80-96); MEAN PLT VOLUME 8.2 fl (7.5-11.1); PLATELET COUNT 245 K/MM3 (134-434); RBC 4.71 M/mm3 (4.00-5.60); RDW 12.7 % (11.9-15.9)
--- NOTE | 2018-04-18 09:32 | DS ---
Physical Examination Vital Signs: Vital Signs Temperature 97.8 F 04/18/18 06:15 Pulse Rate 62 04/18/18 06:15 Respiratory Rate 18 04/18/18 06:15 Blood Pressure 128/93 04/18/18 06:15 O2 Sat by Pulse Oximetry (%) 98 04/17/18 21:00 Findings/Remarks: Patient is a 33 yr old male with past medical history of NIDDM, HTN, Asthma. Patient presented to ER with complaints of L ear pain for 2 days. Evaluated by ENT and started on IV ABT, tolerated well. Seen by ID and ABT switched to ciprofloxacin 500mg PO BID. Patient states feeling better and pain has subsided. HgA1c 9.4%, endocrinology consulted. Will start on levemir daily. Constitutional: Yes: Well Nourished, No Distress, Calm Eyes: Yes: Conjunctiva Clear Neck: Yes: Supple Cardiovascular: Yes: Regular Rate and Rhythm Respiratory: Yes: Regular, CTA Bilaterally Gastrointestinal: Yes: Normal Bowel Sounds, Soft Musculoskeletal: Yes: WNL Extremities: Yes: WNL Edema: No Neurological: Yes: Alert, Oriented Psychiatric: Yes: Alert, Oriented Labs: CBC, BMP 04/18/18 06:00 04/18/18 06:00 Discharge Summary Reason For Visit: DIABETES MELLITUS, MASTOIDITIS Current Active Problems HTN (hypertension) (Acute) Left middle ear infection (Acute) Mastoiditis (Acute) Hospital Course: Active Medications Generic Name Dose Route Start Last Admin Trade Name Freq PRN Reason Stop Dose Admin Albuterol Sulfate 2 puff 04/17/18 09:00 Ventolin Hfa Inhaler - IH Q4H PRN SHORT OF BREATH/WHEEZING Insulin Aspart 1 vial 04/16/18 07:00 04/18/18 06:18 Novolog Vial Sliding Scale - SQ 4 units ACHS NITIN Administration Protocol Insulin Detemir 20 units 04/18/18 10:00 Levemir Vial SQ BID NITIN Ketorolac Tromethamine 30 mg 04/15/18 21:00 04/18/18 02:59 Toradol Injection - IVPUSH 04/20/18 20:59 30 mg Q8H-IV NITIN Administration Levofloxacin 500 mg 04/19/18 06:00 Levaquin - PO DAILY@0600 NITIN Neomycin/Polymyxin/Hydrocortisone 4 drop 04/16/18 22:00 04/18/18 06:17 Cortisporin Otic Suspenstion - 4 drop TID NITIN Administration Tramadol HCl 50 mg 04/16/18 00:01 Ultram - PO Q8H PRN PAIN LEVEL 7 - 10 Laboratory Last Values WBC 9.0 K/mm3 (4.0-10.0) 04/18/18 06:00 RBC 4.71 M/mm3 (4.00-5.60) 04/18/18 06:00 Hgb 14.8 GM/dL (11.7-16.9) 04/18/18 06:00 Hct 41.9 % (35.4-49) 04/18/18 06:00 MCV 89.1 fl (80-96) 04/18/18 06:00 MCH 31.5 pg (25.7-33.7) 04/18/18 06:00 MCHC 35.4 g/dl (32.0-35.9) 04/18/18 06:00 RDW 12.7 % (11.9-15.9) 04/18/18 06:00 Plt Count 245 K/MM3 (134-434) 04/18/18 06:00 MPV 8.2 fl (7.5-11.1) 04/18/18 06:00 Absolute Neuts (auto) 6.1 K/mm3 (1.5-8.0) 04/16/18 06:25 Neutrophils % 59.7 % (42.8-82.8) 04/16/18 06:25 Lymphocytes % 28.5 % (8-40) 04/16/18 06:25 Monocytes % 8.7 % (3.8-10.2) 04/16/18 06:25 Eosinophils % 2.5 % (0-4.5) 04/16/18 06:25 Basophils % 0.6 % (0-2.0) 04/16/18 06:25 Nucleated RBC % 0 % (0-0) 04/16/18 06:25 Sodium 137 mmol/L (136-145) 04/18/18 06:00 Potassium 3.9 mmol/L (3.5-5.1) 04/18/18 06:00 Chloride 102 mmol/L (98-107) 04/18/18 06:00 Carbon Dioxide 29 mmol/L (21-32) 04/18/18 06:00 Anion Gap 6 MMOL/L (8-16) L 04/18/18 06:00 BUN 20 mg/dL (7-18) H 04/18/18 06:00 Creatinine 0.8 mg/dL (0.55-1.3) 04/18/18 06:00 Creat Clearance w eGFR > 60 (>60) 04/18/18 06:00 POC Glucometer 240 UNITS (80-120) 04/18/18 05:46 Random Glucose 208 mg/dL (74-106) H 04/18/18 06:00 Hemoglobin A1c % 9.4 % (4.2-6.3) H 04/17/18 06:00 Calcium 8.0 mg/dL (8.5-10.1) L 04/18/18 06:00 Total Bilirubin 0.4 mg/dL (0.2-1) 04/18/18 06:00 AST 8 U/L (15-37) L 04/18/18 06:00 ALT 29 U/L (13-61) 04/18/18 06:00 Alkaline Phosphatase 61 U/L (45-117) 04/18/18 06:00 Total Protein 6.2 g/dl (6.4-8.2) L 04/18/18 06:00 Albumin 3.0 g/dl (3.4-5.0) L 04/18/18 06:00 Condition: Improved - Instructions Diet, Activity, Other Instructions: Follow up with PMD in 1 week follow up with ENT in [address] Nobles for DM management cont with medication regimen as prescribed diabetic diet Referrals: Aniceto Avery [Primary Care Provider] - Tito Erickson MD [Staff Physician] - Ace Snider MD [Staff Physician] - Disposition: HOME - Home Medications Comprehensive Discharge Medication List: Ambulatory Orders Albuterol 0.083% Nebulizer Liat [Ventolin 0.083% Nebulizer Soln -] 1 neb NEB Q4H #20 vial 02/24/17 Albuterol Sulfate Inhaler - [Ventolin HFA Inhaler -] 1 - 2 inh PO Q4H #1 inhaler 02/24/17 Albuterol Sulfate Inhaler - [Ventolin HFA Inhaler -] 2 puff IH Q4H PRN #1 inhaler 04/18/18 Ciprofloxacin [Cipro -] 500 mg PO BID 7 Days #14 tablet 04/18/18 Insulin (Levemir) [Levemir Vial] 20 units SQ BID #100 units 04/18/18 Insulin Sliding Scale [Novolog Vial Sliding Scale -] 1 vial SQ ACHS #100 units 04/18/18 Neomycin/Polymyxn/Hc [Cortisporin *Otic Suspenstion* -] 4 drop TID #1 bottle 04/18/18
[2018-04-18] MEDS ORDERED: CIPROFLOXACIN 500 MG TABLET (RESTRICTED TO ID) PO ONE (09:40)
[2018-04-18] MEDS ORDERED: INSULIN (LEVEMIR) 100 UNITS/ML UNITS SQ SCH (10:00)
[2018-04-18 17:40] VITALS: BP 125/72; PULSE 57; TEMP 97.9
== END 2018-04-18 18:17 | disposition home or self-care (01) | DRG 113 ==
LOC: JER 09:59 → JERFT 09:59 → JERBED 17:32 → J7W 19:35
PROVIDERS: ADMIT Internal Medicine; ATTEND Family Medicine
DX: H66.92 Otitis media, unspecified, left ear (principal); E11.65 Type 2 diabetes mellitus with hyperglycemia; I10 Essential (primary) hypertension; H70.002 Acute mastoiditis without complications, left ear; J45.909 Unspecified asthma, uncomplicated; E66.9 Obesity, unspecified; Z68.35 Body mass index [BMI] 35.0-35.9, adult
CPT/HCPCS: 36415; 70481-TC; 80048; 80053; 82962; 83036; 85025; 85027; 87040; 87081; 99282-25

== ENCOUNTER 2019-04-25 09:37 | Emergency (ER) | payer OTHER ==
[2019-04-25 09:46] VITALS: BP 122/79; PULSE 89; TEMP 98.1; BMI 31.5
--- NOTE | 2019-04-25 11:42 | PDOC ---
History of Present Illness - General Chief Complaint: Abscess Boil Stated Complaint: Abscess Boil Time Seen by Provider: 04/25/19 10:53 History Source: Patient Exam Limitations: No Limitations Past History - Travel Traveled outside of the country in the last 30 days: No Close contact w/someone who was outside of country & ill: No - Past Medical History Allergies/Adverse Reactions: Allergies Allergy/AdvReac Type Severity Reaction Status Date / Time No Known Drug Allergies Allergy Verified 04/25/19 09:43 codfish Allergy Unknown Itching Uncoded 04/25/19 09:43 shrimp Allergy Unknown Itching Uncoded 04/25/19 09:43 Home Medications: Ambulatory Orders Albuterol 0.083% Nebulizer Liat [Ventolin 0.083% Nebulizer Soln -] 1 neb NEB Q4H #20 vial 02/24/17 Albuterol Sulfate Inhaler - [Ventolin HFA Inhaler -] 1 - 2 inh PO Q4H #1 inhaler 02/24/17 Albuterol Sulfate Inhaler - [Ventolin HFA Inhaler -] 2 puff IH Q4H PRN #1 inhaler 04/18/18 Alcohol Antiseptic Pads [Alcohol Swabs] 1 each TP BID 30 Days med..pad 04/18/18 Ciprofloxacin [Cipro -] 500 mg PO BID 7 Days #14 tablet 04/18/18 Insulin (Levemir) [Levemir Vial] 20 units SQ BID #100 units 04/18/18 Insulin Sliding Scale [Novolog Vial Sliding Scale -] 1 vial SQ ACHS #100 units 04/18/18 Lancets/Blood Glucose Strips [Fora [id number] Strp-Lnct] 1 each MC BID 30 Days #90 combo..pkg 04/18/18 Neomycin/Polymyxn/Hc [Cortisporin *Otic Suspenstion* -] 4 drop TID #1 bottle 04/18/18 Syring-Needl,Disp,Insul,0.3 ml [Insulin Syringe] 1 each MC DAILY 30 Days #30 disp.syrin 04/18/18 Cephalexin Monohydrate [Keflex -] 500 mg PO BID #14 capsule 04/25/19 Sulfamethoxazole/Trimethoprim [Bactrim Ds -] 1 tab PO BID #14 tablet 04/25/19 Anemia: No Asthma: Yes Cancer: No Cardiac Disorders: No CVA: No COPD: No CHF: No Dementia: No Diabetes: Yes (NIDDM) GI Disorders: No Disorders: No HTN: Yes Hypercholesterolemia: No Liver Disease: No Seizures: No Thyroid Disease: No - Surgical History Abdominal Surgery: No Appendectomy: No Cardiac Surgery: No Cholecystectomy: No Lung Surgery: No Neurologic Surgery: No Orthopedic Surgery: No - Immunization History Td Vaccination: No (unknown) Immunization Up to Date: Yes - Psycho Social/Smoking Cessation Hx Smoking Status: Yes Smoking History: Current every day smoker Have you smoked in the past 12 months: Yes Number of Cigarettes Smoked Daily: 5 If you are a former smoker, when did you quit?: 2WEEKS AGO Information on smoking cessation initiated: Yes 'Breaking Loose' booklet given: 05/03/15 Hx Alcohol Use: No Drug/Substance Use Hx: No Substance Use Type: None Hx Substance Use Treatment: No Review of Systems - Review of Systems Able to Perform ROS?: Yes Comments:: 04/25/19 11:36 CONSTITUTIONAL: Absent: fever, chills, diaphoresis, generalized weakness, malaise, loss of appetite MUSCULOSKELETAL: Absent: myalgia, arthralgia, joint swelling SKIN: Present: abscess Absent: rash, itching, pallor HEMATOLOGIC/IMMUNOLOGIC: Absent: easy bleeding, easy bruising, lymphadenopathy, frequent infections ENDOCRINE: Absent: unexplained weight gain, unexplained weight loss, heat intolerance, cold intolerance NEUROLOGIC: Absent: headache, focal weakness or paresthesias, dizziness, unsteady gait, seizure, mental status changes, bladder or bowel incontinence PSYCHIATRIC: Absent: anxiety, depression, suicidal or homicidal ideation, hallucinations. Is the patient limited Divehi proficient: No *Physical Exam - Vital Signs Last Vital Signs Temp Pulse Resp BP Pulse Ox 98.1 F 89 17 122/79 99 04/25/19 09:43 04/25/19 09:43 04/25/19 09:43 04/25/19 09:43 04/25/19 09:43 - Physical Exam 04/25/19 11:38 GENERAL: Well developed, well nourished. Awake and alert. No acute distress. MUSCULOSKELETAL Normal range of motion at all joints. No bony deformities or tenderness. No CVA tenderness. EXTREMITIES: No cyanosis. No clubbing. No edema. No calf tenderness. SKIN: Indurated pustule to the right neck. The left upper abdomen with another indurated pustule approximately the size of a quarter. Warm and dry. Normal capillary refill. No rashes. No jaundice. NEUROLOGICAL: Alert, awake, appropriate. Cranial nerves 2-12 intact. No deficits to light touch and temperature in face, upper extremities and lower extremities. No motor deficits in the in face, upper extremities and lower extremities. Normoreflexic in the upper and lower extremities. Normal speech. Toes are down-going bilaterally. Gait is normal without ataxia. PSYCHIATRIC: Cooperative. Good eye contact. Appropriate mood and affect. Medical Decision Making - Medical Decision Making 04/25/19 11:40 The patient is a 34-year-old male past medical history of [id number]-qttyivelf diabetes, currently not taking any medication as his sugars are controlled, presents to the ER today for abscesses to his neck and up to her abdomen. He states he started approximately 3 days ago. He thought they were pimples and has been using warm showers to help with the pain however he states that they have gotten bigger and they are tender so he came to the ER for evaluation. Denies fevers, chills, increased thirst, increased urination nausea and vomiting. A/P: Cellulitis On exam patient has a indurated pimple to the right side of the neck. No active drainage at this time. Unable to drain as the area is heavily indurated. We will recommend warm water compresses. On the left abdomen there is a open draining indurated pimple approximately the size of a quarter. More purulent matter was expressed out of the site and wound culture was taken and sent to the lab. Will start the patient on Bactrim and Keflex. Advised patient to follow-up with his primary care doctor. If he is unable to see his primary care doctor advised to come back in 2 to 3 days for wound check. Discharge home. I discussed the physical exam findings, ancillary test results and final diagnoses with the patient. I answered all of the patient's questions. The patient was satisfied with the care received and felt comfortable with the discharge plan and treatment plan. The Patient agrees to follow up with the primary care physician/specialist within 24-72 hours. Return precautions were given. Discharge - Discharge Information Problems reviewed: Yes Clinical Impression/Diagnosis: Cellulitis Qualifiers: Site of cellulitis: trunk Site of cellulitis of trunk: abdominal wall Qualified Code(s): L03.311 - Cellulitis of abdominal wall Condition: Stable Disposition: HOME - Admission No - Additional Discharge Information Prescriptions: Cephalexin Monohydrate [Keflex -] 500 mg PO BID #14 capsule Sulfamethoxazole/Trimethoprim [Bactrim Ds -] 1 tab PO BID #14 tablet - Follow up/Referral Referrals: Aniceto Avery [Primary Care Provider] - - Patient Discharge Instructions Patient Printed Discharge Instructions: DI for Cellulitis -- Adult Additional Instructions: You have cellulitis. This is a skin infection. Please take the Bactrim and Keflex twice a day for one week. Please take all the antibiotics even if you feel better. You may use warm water soaks to the area. Please do this approximately 4-5 times a day. Please avoid shaving the skin around the area of redness. You may take Tylenol or Motrin as needed for pain. Please follow up with your primary care doctor in 1 week. 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 Return to the emergency department if you have worsening redness, fevers, increasing pain, or have any changes in your symptoms. - Post Discharge Activity Work/Back to School Note: Back to Work
== END 2019-04-25 11:49 | disposition home or self-care (01) ==
LOC: JERFT 09:37
DX: L03.311 Cellulitis of abdominal wall (principal); I10 Essential (primary) hypertension; E11.9 Type 2 diabetes mellitus without complications; Z91.013 Allergy to seafood
CPT/HCPCS: 87070; 87186; 87205; 99282-25

== ENCOUNTER 2021-02-03 13:37 | Emergency (ER) | payer SELFPAY ==
[2021-02-03 13:49] VITALS: BP 112/80; PULSE 97; TEMP 97; BMI 33.0
[2021-02-03] MEDS ORDERED: ACETAMINOPHEN 325 MG TABLET (FP) PO ONE (14:12)
[2021-02-03] MEDS ORDERED: ACETAMINOPHEN 325 MG TABLET (FP) ONE (14:15)
[2021-02-03] MEDS ORDERED: KETOROLAC TROMETHAMINE 60 MG/2 ML VIAL IM ONE (15:34)
[2021-02-03] MEDS ORDERED: KETOROLAC TROMETHAMINE 30 MG/1 ML VIAL ONE (15:41)
== END 2021-02-03 15:55 | disposition home or self-care (01) ==
LOC: JER 13:37 → JERFT 13:37
PROC: 3E0233Z Introduction of Anti-inflammatory into Muscle, Percutaneous Approach (ICD-10-PCS; principal; 2021-02-03)
DX: M79.602 Pain in left arm (principal)
CPT/HCPCS: 73060-TC-LT-FY; 73070-TC-LT-FY; 73090-TC-LT-FY; 73110-TC-LT-FY; 73130-TC-LT-FY; 73130-TC-RT-FY; 99284-25

== ENCOUNTER 2021-02-06 17:18 | Emergency (ER) | payer SELFPAY ==
[2021-02-06 17:50] VITALS: BP 144/81; PULSE 80; TEMP 97.9; BMI 32.3
== END 2021-02-06 21:21 | disposition home or self-care (01) ==
LOC: JER 17:18
DX: R05.1 Acute cough (principal); R07.89 Other chest pain; R09.81 Nasal congestion; J06.9 Acute upper respiratory infection, unspecified; Z11.52 Encounter for screening for COVID-19
CPT/HCPCS: 71045-TC-FY; 99284-25; C9803; U0003; U0005

== ENCOUNTER 2021-12-15 13:07 | Inpatient (IN) | payer OTHER ==
[2021-12-15] MEDS ORDERED: SODIUM CHLORIDE 1,000 ML IV STA ×2 (14:07→15:28)
[2021-12-15] MEDS ORDERED: CLINDAMYCIN 600MG PREMIX IVPB 600 MG/50 ML BAG IVPB ONE ×2 (14:14→14:27)
[2021-12-15] MEDS ORDERED: LIDOCAINE HCL 2% (50ML VIAL) SQ ONE (14:15)
[2021-12-15 14:57] LABS: BASO % 0.7 % (0-2.0); EOS % 0.2 % (0-4.5); HEMATOCRIT 45.2 % (35.4-49); HEMOGLOBIN 15.5 GM/dL (11.7-16.9); LYMPH % 20.5 % (8-40); MCH 30.7 pg (25.7-33.7); MCHC 34.4 g/dl (32.0-35.9); MEAN CELL VOLUME 89.4 fl (80-96); MEAN PLT VOLUME 7.9 fl (7.5-11.1); MONO % 10.8 % (3.8-10.2); NEUT % 67.8 % (42.8-82.8); PLATELET COUNT 297 10^3/uL (134-434); RBC 5.05 M/mm3 (4.00-5.60); RDW 12.8 % (11.9-15.9); WHITE BLOOD COUNT 12.3 K/mm3 (4.0-10.0)
[2021-12-15 15:14] LABS: CALCIUM 8.9 mg/dL (8.5-10.1)
[2021-12-15 15:15] LABS: BLOOD UREA NITROGEN 17.3 mg/dL (7-18)
[2021-12-15 15:18] LABS: CREATININE 1.2 mg/dL (0.55-1.3)
[2021-12-15 15:20] LABS: BILIRUBIN,TOTAL 1.1 mg/dL (0.2-1); TOT PROT 6.8 g/dl (6.4-8.2)
[2021-12-15] MEDS ORDERED: POTASSIUM CHLORIDE TABS 20 MEQ TABLET.ER (FP) PO ONE ×2 (15:27→15:38)
[2021-12-15] MEDS ORDERED: INSULIN REGULAR HUMAN 100 UNITS/ML *VIAL IVPUSH ONE (15:27)
[2021-12-15] MEDS ORDERED: LACTATED RINGERS SOLUTION 1,000 ML/1,000 ML INFUS.BAG IV SCH (17:00)
[2021-12-15] MEDS: INSULIN SLIDING SCALE (NOVOLOG) 1 VIAL SQ SCH (17:33)
[2021-12-15] MEDS: oxyCODONE HCL 5 MG TABLET PO PRN (20:37)
[2021-12-15] MEDS: INSULIN (LEVEMIR) 100 UNITS/ML UNITS SQ SCH (21:27)
[2021-12-15] MEDS ORDERED: VANCOMYCIN 1 GM in D5W (PRE-DOCKED) 1,000 MG/250 ML IVPB SCH (22:00)
[2021-12-15] MEDS ORDERED: VANCOMYCIN 1 GM/200 ML PREMIX BAG IVPB SCH (22:00)
[2021-12-15 22:56] VITALS: BMI 33.9
[2021-12-16] MEDS: oxyCODONE HCL 5 MG TABLET PO PRN (04:05)
[2021-12-16] MEDS: INSULIN SLIDING SCALE (NOVOLOG) 1 VIAL SQ SCH ×3 (06:01→17:33)
[2021-12-16] MEDS: ACETAMINOPHEN 325 MG TABLET (FP) PO PRN ×3 (09:10→22:28)
[2021-12-16] MEDS ORDERED: PIPERACILLIN/TAZOB 3.375 GM 3.375 GM in DEXTROSE 5%-WATER - 50 ML IVPB SCH (10:00)
[2021-12-16] MEDS ORDERED: VANCOMYCIN 1,000 MG in DEXTROSE 5%-WATER - 250 ML IVPB SCH (10:00)
[2021-12-16 10:29] LABS: EOS % 2.6 % (0-4.5); HEMATOCRIT 45.4 % (35.4-49); HEMOGLOBIN 15.7 GM/dL (11.7-16.9); LYMPH % 39.7 % (8-40); MCH 30.8 pg (25.7-33.7); MCHC 34.5 g/dl (32.0-35.9); MEAN CELL VOLUME 89.1 fl (80-96); MEAN PLT VOLUME 7.7 fl (7.5-11.1); MONO % 13.9 % (3.8-10.2); NEUT % 42.8 % (42.8-82.8); PLATELET COUNT 302 10^3/uL (134-434); RBC 5.09 M/mm3 (4.00-5.60); RDW 12.9 % (11.9-15.9); WHITE BLOOD COUNT 7.5 K/mm3 (4.0-10.0)
[2021-12-16] MEDS: PIPERACILLIN/TAZOB 3.375 GM 3.375 GM in DEXTROSE 5%-WATER - 50 ML IVPB SCH ×2 (10:44→17:29)
[2021-12-16] MEDS: ENOXAPARIN NA (PORCINE) 40 MG/0.4 ML DISP.SYRIN SQ SCH (10:46)
[2021-12-16 10:57] LABS: CALCIUM 8.8 mg/dL (8.5-10.1)
[2021-12-16 10:58] LABS: ALBUMIN 3.1 g/dl (3.4-5.0)
[2021-12-16 10:59] LABS: PHOSPHOROUS 3.3 mg/dL (2.5-4.9)
[2021-12-16 11:00] LABS: TOT PROT 7.2 g/dl (6.4-8.2)
[2021-12-16 11:01] LABS: BILIRUBIN,TOTAL 1.2 mg/dL (0.2-1); CREATININE 0.6 mg/dL (0.55-1.3)
[2021-12-16 11:06] LABS: CHOLESTEROL 167 mg/dL (50-200)
[2021-12-16 11:07] LABS: LDL CHOLESTEROL (ONLY SJRH) 113 mg/dL (5-100); TRIGLYCERIDES 153 mg/dL (0-150)
[2021-12-16 11:09] LABS: HDL CHOLESTEROL 32 mg/dL (40-60)
[2021-12-16] MEDS ORDERED: ALBUTEROL SO4 2.5/IPRATROPIUM 0.5 INH SOL 3 ML VIAL.NEB. NEB PRN (11:27)
[2021-12-16] MEDS: VANCOMYCIN/WATER FOR INJ (PEG) 1,000 MG/200 ML BAG IVPB SCH ×2 (11:36→22:29)
[2021-12-16 13:20] LABS: EPI CELLS 23 /uL (0-25.1); HYALINE CASTS 57 /uL (0-3.1); PH,URINE 5.5 (5.0-8.0); URINE APPEARANCE TURBID; URINE BACTERIA 13 /uL (0-1359); URINE BILIRUBIN 1+ (NEGATIVE); URINE COLOR DK YELLOW; URINE GLUCOSE (UA) TRACE (NEGATIVE); URINE KETONE TRACE (NEGATIVE); URINE LEUK ESTERASE 2+ (NEGATIVE); URINE NITRITE NEGATIVE (NEGATIVE); URINE PROTEIN TRACE (NEGATIVE); URINE RBC 8 /uL (0-23.9); URINE WBC 444 /uL (0-25.8)
[2021-12-16] MEDS ORDERED: KETOROLAC TROMETHAMINE 15 MG/ML VIAL IVPUSH ONE (16:09)
[2021-12-16] MEDS: INSULIN (LEVEMIR) 100 UNITS/ML UNITS SQ SCH (22:40)
[2021-12-17] MEDS: oxyCODONE HCL 5 MG TABLET PO PRN ×2 (00:06→11:30)
[2021-12-17] MEDS: PIPERACILLIN/TAZOB 3.375 GM 3.375 GM in DEXTROSE 5%-WATER - 50 ML IVPB SCH ×3 (02:14→17:37)
[2021-12-17] MEDS: INSULIN SLIDING SCALE (NOVOLOG) 1 VIAL SQ SCH ×3 (06:23→17:18)
[2021-12-17] MEDS: ENOXAPARIN NA (PORCINE) 40 MG/0.4 ML DISP.SYRIN SQ SCH (11:29)
[2021-12-17] MEDS: VANCOMYCIN/WATER FOR INJ (PEG) 1,000 MG/200 ML BAG IVPB SCH ×2 (11:29→21:26)
[2021-12-17 12:32] LABS: BASO % 0.7 % (0-2.0); EOS % 2.1 % (0-4.5); HEMATOCRIT 44.9 % (35.4-49); HEMOGLOBIN 15.3 GM/dL (11.7-16.9); LYMPH % 37.9 % (8-40); MCH 30.2 pg (25.7-33.7); MCHC 34.2 g/dl (32.0-35.9); MEAN CELL VOLUME 88.3 fl (80-96); MONO % 11.1 % (3.8-10.2); NEUT % 48.2 % (42.8-82.8); PLATELET COUNT 345 10^3/uL (134-434); RBC 5.08 M/mm3 (4.00-5.60); RDW 12.8 % (11.9-15.9); WHITE BLOOD COUNT 7.1 K/mm3 (4.0-10.0)
[2021-12-17 13:41] LABS: ALBUMIN 3.2 g/dl (3.4-5.0)
[2021-12-17 13:42] LABS: BLOOD UREA NITROGEN 13.1 mg/dL (7-18); MAGNESIUM 1.7 mg/dL (1.8-2.4)
[2021-12-17 13:43] LABS: CREATININE 0.6 mg/dL (0.55-1.3)
[2021-12-17 13:44] LABS: PHOSPHOROUS 3.4 mg/dL (2.5-4.9)
[2021-12-17 13:45] LABS: BILIRUBIN,TOTAL 0.7 mg/dL (0.2-1); TOT PROT 6.9 g/dl (6.4-8.2)
[2021-12-17 13:48] LABS: HIV INTERPRETATION NEGATIVE (NEGATIVE)
[2021-12-17] MEDS: metFORMIN HCL 500 MG TABLET (FP) PO SCH (17:34)
[2021-12-17] MEDS: INSULIN (LEVEMIR) 100 UNITS/ML UNITS SQ SCH ×2 (18:46→21:25)
[2021-12-18] MEDS: PIPERACILLIN/TAZOB 3.375 GM 3.375 GM in DEXTROSE 5%-WATER - 50 ML IVPB SCH ×3 (02:41→18:32)
[2021-12-18] MEDS: glyBURIDE 5 MG TABLET PO SCH (06:42)
[2021-12-18] MEDS: metFORMIN HCL 500 MG TABLET (FP) PO SCH ×2 (06:42→17:42)
[2021-12-18] MEDS: INSULIN SLIDING SCALE (NOVOLOG) 1 VIAL SQ SCH ×3 (06:43→17:44)
[2021-12-18 09:23] LABS: HEMATOCRIT 46.5 % (35.4-49); HEMOGLOBIN 16.1 GM/dL (11.7-16.9); MCH 30.7 pg (25.7-33.7); MCHC 34.7 g/dl (32.0-35.9); MEAN CELL VOLUME 88.4 fl (80-96); MEAN PLT VOLUME 7.4 fl (7.5-11.1); PLATELET COUNT 340 10^3/uL (134-434); RBC 5.26 M/mm3 (4.00-5.60); RDW 12.8 % (11.9-15.9); WHITE BLOOD COUNT 9.1 K/mm3 (4.0-10.0)
[2021-12-18 09:51] LABS: CALCIUM 9.2 mg/dL (8.5-10.1)
[2021-12-18 09:52] LABS: ALBUMIN 3.2 g/dl (3.4-5.0); BLOOD UREA NITROGEN 8.6 mg/dL (7-18); MAGNESIUM 1.9 mg/dL (1.8-2.4)
[2021-12-18 09:55] LABS: CREATININE 0.6 mg/dL (0.55-1.3)
[2021-12-18 09:56] LABS: BILIRUBIN,TOTAL 0.8 mg/dL (0.2-1)
[2021-12-18 09:57] LABS: TOT PROT 7.3 g/dl (6.4-8.2)
[2021-12-18 09:59] LABS: PHOSPHOROUS 3.4 mg/dL (2.5-4.9)
[2021-12-18] MEDS: ENOXAPARIN NA (PORCINE) 40 MG/0.4 ML DISP.SYRIN SQ SCH (09:59)
[2021-12-18 10:48] LABS: ANISOCYTOSIS 0; HELMET CELLS 0; HOWELL-JOLLY BODIES 0; MACROCYTOSIS 0; OVALOCYTE 0; ROULEAU 0; SICKELED CELLS 0; TARGET CELLS 0; TEAR DROP CELLS 0; TOXIC GRANULATION 0
[2021-12-18] MEDS: VANCOMYCIN/WATER FOR INJ (PEG) 1,000 MG/200 ML BAG IVPB SCH (10:50)
[2021-12-18] MEDS ORDERED: INSULIN SLIDING SCALE (NOVOLOG) 1 VIAL SQ ONE (12:29)
[2021-12-18] MEDS ORDERED: oxyCODONE HCL 5 MG TABLET PO ONE (21:28)
[2021-12-19] MEDS: VANCOMYCIN/WATER FOR INJ (PEG) 1,000 MG/200 ML BAG IVPB SCH ×3 (00:55→21:30)
[2021-12-19] MEDS: PIPERACILLIN/TAZOB 3.375 GM 3.375 GM in DEXTROSE 5%-WATER - 50 ML IVPB SCH ×3 (02:43→17:05)
[2021-12-19] MEDS: glyBURIDE 5 MG TABLET PO SCH (06:52)
[2021-12-19] MEDS: metFORMIN HCL 500 MG TABLET (FP) PO SCH ×2 (06:52→17:05)
[2021-12-19] MEDS: INSULIN SLIDING SCALE (NOVOLOG) 1 VIAL SQ SCH ×3 (06:54→17:05)
[2021-12-19] MEDS: ENOXAPARIN NA (PORCINE) 40 MG/0.4 ML DISP.SYRIN SQ SCH (09:40)
[2021-12-19 10:03] LABS: EOS % 1.7 % (0-4.5); HEMATOCRIT 41.3 % (35.4-49); HEMOGLOBIN 14.1 GM/dL (11.7-16.9); MCH 30.3 pg (25.7-33.7); MCHC 34.2 g/dl (32.0-35.9); MEAN CELL VOLUME 88.6 fl (80-96); MEAN PLT VOLUME 7.6 fl (7.5-11.1); MONO % 12.5 % (3.8-10.2); NEUT % 29.8 % (42.8-82.8); PLATELET COUNT 314 10^3/uL (134-434); RBC 4.66 M/mm3 (4.00-5.60); RDW 12.6 % (11.9-15.9); WHITE BLOOD COUNT 7.8 K/mm3 (4.0-10.0)
[2021-12-19] MEDS: ACETAMINOPHEN 325 MG TABLET (FP) PO PRN (11:07)
[2021-12-19 11:17] LABS: ALBUMIN 2.8 g/dl (3.4-5.0); BILIRUBIN,TOTAL 0.4 mg/dL (0.2-1); BLOOD UREA NITROGEN 11.6 mg/dL (7-18); CALCIUM 8.7 mg/dL (8.5-10.1); CREATININE 0.7 mg/dL (0.55-1.3); MAGNESIUM 1.9 mg/dL (1.8-2.4); PHOSPHOROUS 3.9 mg/dL (2.5-4.9); TOT PROT 6.3 g/dl (6.4-8.2)
[2021-12-19 13:15] LABS: URINE APPEARANCE CLEAR; URINE BILIRUBIN NEGATIVE (NEGATIVE); URINE COLOR YELLOW; URINE GLUCOSE (UA) NEGATIVE (NEGATIVE)
[2021-12-19 13:16] LABS: URINE KETONE TRACE (NEGATIVE); URINE LEUK ESTERASE NEGATIVE (NEGATIVE); URINE NITRITE 2+ (NEGATIVE); URINE PROTEIN TRACE (NEGATIVE); URINE UROBILINOGEN 0.2 mg/dL (0.2-1.0)
[2021-12-19 15:24] LABS: URINE RBC 0-2 /uL (0-23.9)
[2021-12-19 15:28] LABS: URINE BACTERIA RARE /uL (0-1359)
[2021-12-19 22:53] VITALS: RESP 16
[2021-12-20] MEDS: PIPERACILLIN/TAZOB 3.375 GM 3.375 GM in DEXTROSE 5%-WATER - 50 ML IVPB SCH ×2 (01:08→10:39)
[2021-12-20] MEDS: INSULIN SLIDING SCALE (NOVOLOG) 1 VIAL SQ SCH ×2 (06:19→12:05)
[2021-12-20] MEDS: metFORMIN HCL 500 MG TABLET (FP) PO SCH (06:23)
[2021-12-20] MEDS: glyBURIDE 5 MG TABLET PO SCH (06:23)
[2021-12-20 08:17] LABS: HEMOGLOBIN 14.3 GM/dL (11.7-16.9); MCH 30.4 pg (25.7-33.7); MCHC 34.1 g/dl (32.0-35.9); MEAN PLT VOLUME 7.3 fl (7.5-11.1); PLATELET COUNT 346 10^3/uL (134-434); RBC 4.72 M/mm3 (4.00-5.60); RDW 12.8 % (11.9-15.9); WHITE BLOOD COUNT 9.1 K/mm3 (4.0-10.0)
[2021-12-20 08:49] LABS: BLOOD UREA NITROGEN 12.6 mg/dL (7-18); CALCIUM 8.8 mg/dL (8.5-10.1)
[2021-12-20 08:52] LABS: CREATININE 0.7 mg/dL (0.55-1.3)
[2021-12-20 08:54] LABS: BILIRUBIN,TOTAL 0.8 mg/dL (0.2-1); TOT PROT 6.7 g/dl (6.4-8.2)
[2021-12-20 09:22] LABS: ANISOCYTOSIS 0; HELMET CELLS 0; HOWELL-JOLLY BODIES 0; MACROCYTOSIS 0; OVALOCYTE 0; ROULEAU 0; SICKELED CELLS 0; TARGET CELLS 0; TEAR DROP CELLS 0; TOXIC GRANULATION 0
[2021-12-20 10:39] VITALS: BP 119/68; PULSE 62; TEMP 97.5
[2021-12-20] MEDS: ENOXAPARIN NA (PORCINE) 40 MG/0.4 ML DISP.SYRIN SQ SCH (10:39)
[2021-12-20] MEDS: VANCOMYCIN/WATER FOR INJ (PEG) 1,000 MG/200 ML BAG IVPB SCH (11:59)
== END 2021-12-20 16:18 | disposition home or self-care (01) | DRG 383 ==
LOC: JER 13:07 → JERBED 16:29 → J5S 18:51
PROVIDERS: ADMIT Internal Medicine; ATTEND Internal Medicine
PROC: 0W9F3ZZ Drainage of Abdominal Wall, Percutaneous Approach (ICD-10-PCS; principal; 2021-12-15)
DX: L02.211 Cutaneous abscess of abdominal wall (principal); E11.65 Type 2 diabetes mellitus with hyperglycemia; E66.01 Morbid (severe) obesity due to excess calories; J45.909 Unspecified asthma, uncomplicated; F17.210 Nicotine dependence, cigarettes, uncomplicated; R82.81 Pyuria; Z68.33 Body mass index [BMI] 33.0-33.9, adult
CPT/HCPCS: 0241U-QW; 36415; 74176-TC; 80053; 80061; 81003; 82962; 83036; 83605; 83735; 84100; 85025; 85651; 86140; 87040; 87070; 87076; 87086; 87205; 87389; 93005; 93010; 99285-25; G0480